=== PATIENT | female | born 1960 | race Caucasian/White ===

== ENCOUNTER 2016-09-09 15:22 | Emergency (ER) | payer MEDICAID, OTHER ==
[~2016-09-09] VITALS: Ht 149.9 cm; Wt 54.0 kg
[~2016-09-09 15:22] MED LIST: HYDR500T13; IBUP800T41; SULFA
[2016-09-09 16:26] VITALS: BP 172/93
== END 2016-09-09 16:35 | disposition home or self-care (01) ==
LOC: ER 15:27
DX: J20.9 Acute bronchitis, unspecified (principal); I10 Essential (primary) hypertension
CPT/HCPCS: 71020

== ENCOUNTER 2017-01-12 15:21 | Emergency (ER) | payer OTHER ==
[~2017-01-12] VITALS: Ht 149.9 cm; Wt 55.8 kg
[2017-01-12 17:48] VITALS: BP 169/103
== END 2017-01-12 19:03 | disposition home or self-care (01) ==
LOC: ER 15:21
DX: J20.9 Acute bronchitis, unspecified (principal); I10 Essential (primary) hypertension; Z90.49 Acquired absence of other specified parts of digestive tract; Z90.710 Acquired absence of both cervix and uterus

== ENCOUNTER 2021-06-23 16:42 | Emergency (ER) | payer OTHER ==
[~2021-06-23] VITALS: Ht 149.9 cm; Wt 52.2 kg
[2021-06-23] MEDS ORDERED: SODIUM CHLORIDE 0.9% 500 ML IV ONE (18:30)
[2021-06-23 20:52] VITALS: BP 154/89
[2021-06-23 20:57] LABS: Basophils # (auto) 0.1 10 ^3/uL (0-0.2); Basophils % (auto) 1.4 % (0.0-2.0); Eosinophils # (auto) 0.1 10 ^3/uL (0-0.8); Eosinophils % (auto) 1.2 % (0.0-7.0); Hematocrit 46.3 % (36.0-46.0); Hemoglobin 15.8 g/dL (12.2-16.2); Lymphocytes # (auto) 2.8 10 ^3/uL (0.4-5.4); Lymphocytes % (auto) 35.6 % (10.0-50.0); Mean Corpuscular Hgb Conc. 34.1 g/dL (32.0-36.0); Mean Corpuscular Volume 81.9 fL (80.0-100.0); Monocytes # (auto) 0.6 10 ^3/uL (0-1.3); Neutrophils # (auto) 4.4 10 ^3/uL (1.6-8.6); Neutrophils % (auto) 54.8 % (37.0-80.0); Nucleated Red Blood Cells % 0.2 %; Red Blood Cells 5.65 10^6/uL (4.0-5.20); White Blood Cell 7.9 10^3/uL (4.4-10.8)
[2021-06-23 21:13] LABS: Albumin 4.1 g/dL (3.4-5.0); BUN/Creatinine Ratio 21.4; Calcium 9.7 mg/dL (8.5-10.1); Potassium 3.9 mmol/L (3.5-5.1)
[2021-06-23 21:16] LABS: Bilirubin, Total 0.5 mg/dL (0.2-1.0); Total Protein 7.9 g/dL (6.4-8.2)
== END 2021-06-23 22:27 | disposition home or self-care (01) ==
LOC: ER 16:42
DX: R42 Dizziness and giddiness (principal); H57.10 Ocular pain, unspecified eye; I10 Essential (primary) hypertension; Z90.710 Acquired absence of both cervix and uterus; Z88.6 Allergy status to analgesic agent
CPT/HCPCS: 36415; 70450; 70480; 80053; 85025; 85652

== ENCOUNTER 2021-11-05 21:24 | Emergency (ER) | payer OTHER ==
[~2021-11-05] VITALS: Ht 149.9 cm; Wt 51.0 kg
[2021-11-05] MEDS ORDERED: LIDOCAINE 5% TOPICAL PATCH TOP ONE (22:15)
[2021-11-05] MEDS ORDERED: ACETAMINOPHEN 325 MG TAB PO ONE (22:15)
[2021-11-06 00:55] VITALS: BP 129/71
== END 2021-11-06 01:00 | disposition home or self-care (01) ==
LOC: ER 21:24
DX: M25.562 Pain in left knee (principal); I10 Essential (primary) hypertension; Z90.49 Acquired absence of other specified parts of digestive tract; Z90.710 Acquired absence of both cervix and uterus; Z90.89 Acquired absence of other organs; Z79.1 Long term (current) use of non-steroidal anti-inflammatories (NSAID); Z79.899 Other long term (current) drug therapy; Z88.8 Allergy status to other drugs, medicaments and biological substances
CPT/HCPCS: 73562

== ENCOUNTER 2022-03-16 15:42 | Emergency (ER) | payer OTHER ==
[~2022-03-16] VITALS: Ht 149.9 cm; Wt 54.0 kg
[2022-03-16 15:42] VITALS: BP 164/88
[2022-03-16] MEDS ORDERED: DEXT1SYP9 PO (19:08)
== END 2022-03-16 20:08 | disposition home or self-care (01) ==
LOC: ER 15:42
DX: R50.9 Fever, unspecified (principal); B34.9 Viral infection, unspecified; I10 Essential (primary) hypertension; Z90.710 Acquired absence of both cervix and uterus; Z20.822 Contact with and (suspected) exposure to COVID-19; Z88.6 Allergy status to analgesic agent
CPT/HCPCS: 36415; 71045; 87426; 87804

== ENCOUNTER 2022-03-24 17:19 | Emergency (ER) | payer OTHER ==
[~2022-03-24] VITALS: Ht 157.5 cm; Wt 52.8 kg
[~2022-03-24 17:19] MED LIST changes: +DEXT1SYP9 PO
[2022-03-24 19:08] LABS: Lymphocytes # (auto) 1.3 10 ^3/uL (0.4-5.4); Mean Corpuscular Hemoglobin 27.1 pg (28.0-32.0); Monocytes # (auto) 0.3 10 ^3/uL (0-1.3)
[2022-03-24 19:10] LABS: Basophils # (auto) 0 10 ^3/uL (0-0.2); Basophils % (auto) 0.7 % (0.0-2.0); Eosinophils # (auto) 0 10 ^3/uL (0-0.8); Eosinophils % (auto) 0.6 % (0.0-7.0); Hematocrit 48.2 % (36.0-46.0); Hemoglobin 16.4 g/dL (12.2-16.2); Lymphocytes % (auto) 20.1 % (10.0-50.0); Mean Corpuscular Hgb Conc. 34.2 g/dL (32.0-36.0); Mean Corpuscular Volume 79.3 fL (80.0-100.0); Monocytes % (auto) 4.1 % (0.0-12.0); Neutrophils # (auto) 4.8 10 ^3/uL (1.6-8.6); Neutrophils % (auto) 74.5 % (37.0-80.0); Nucleated Red Blood Cells % 0.2 %; Red Blood Cells 6.07 10^6/uL (4.0-5.20); Red Cell Distribution Width 13.8 % (11.8-14.3); White Blood Cell 6.4 10^3/uL (4.4-10.8)
[2022-03-24 19:28] LABS: Albumin 4.1 g/dL (3.4-5.0); BUN/Creatinine Ratio 28.8; Calcium 9.2 mg/dL (8.5-10.1); Potassium 3.9 mmol/L (3.5-5.1)
[2022-03-24 19:31] LABS: Bilirubin, Total 0.7 mg/dL (0.2-1.0); Total Protein 7.9 g/dL (6.4-8.2)
[2022-03-24 19:34] LABS: Urine Bacteria FEW /hpf (None Seen); Urine Blood Negative /uL (Negative); Urine Mucus FEW (None Seen); Urine Specific Gravity 1.024 (1.001-1.035); Urine WBC 12 /hpf (0 - 5)
[2022-03-24] MEDS ORDERED: cefTRIAXone SOD 1,000 MG VL IM ONE (22:30)
[2022-03-24] MEDS ORDERED: LACTATED RINGER'S 1,000 ML IV ONE (22:30)
[2022-03-25] MEDS ORDERED: CEPH-322 PO ×2 (00:57)
[2022-03-25 01:20] VITALS: BP 174/77
== END 2022-03-25 05:38 | disposition home or self-care (01) ==
LOC: ER 17:19
DX: M79.7 Fibromyalgia (principal); N39.0 Urinary tract infection, site not specified; E86.0 Dehydration; R42 Dizziness and giddiness; I10 Essential (primary) hypertension; Z90.710 Acquired absence of both cervix and uterus; Z20.822 Contact with and (suspected) exposure to COVID-19
CPT/HCPCS: 36415; 71046; 80053; 81001; 84484; 85025; 87426; 87804; 93005; 96360; 96372; 99285; J0696

== ENCOUNTER 2022-12-21 17:00 | Emergency (ER) | payer OTHER ==
[~2022-12-21] VITALS: Ht 149.9 cm; Wt 52.2 kg
[~2022-12-21 17:00] MED LIST changes: +CEPH250C PO
[2022-12-21 18:26] VITALS: BP 182/99; PULSE 83; RESP 16; TEMP 98.7; O2SAT 98
[2022-12-21] MEDS ORDERED: ERY05OO OP (18:32)
== END 2022-12-21 18:42 | disposition home or self-care (01) ==
LOC: ER 17:00
DX: H00.025 Hordeolum internum left lower eyelid (principal); I10 Essential (primary) hypertension; Z48.00 Encounter for change or removal of nonsurgical wound dressing; Z90.49 Acquired absence of other specified parts of digestive tract; Z90.710 Acquired absence of both cervix and uterus; Z98.890 Other specified postprocedural states; Z88.6 Allergy status to analgesic agent; Z79.1 Long term (current) use of non-steroidal anti-inflammatories (NSAID); Z79.899 Other long term (current) drug therapy

== ENCOUNTER 2024-03-21 19:40 | Inpatient (IN) | payer OTHER ==
[~2024-03-21] VITALS: Ht 149.9 cm; Wt 51.1 kg
[~2024-03-21 19:40] MED LIST changes: +ERY05OO OP
[2024-03-21 21:17] LABS: Chloride 104 mmol/L (98-107); Potassium 3.6 mmol/L (3.5-5.1); Sodium 139 mmol/L (136-145)
[2024-03-21 21:18] LABS: Anion Gap 9 (5-15); Basophils # (auto) 0 10 ^3/uL (0-0.2); Basophils % (auto) 0.7 % (0.0-2.0); Calcium 10.3 mg/dL (8.7-10.4); Carbon Dioxide 26 mmol/L (20-31); Eosinophils # (auto) 0.2 10 ^3/uL (0-0.8); Eosinophils % (auto) 2.8 % (0.0-7.0); Hematocrit 47.5 % (36.0-46.0); Hemoglobin 16.4 g/dL (12.2-16.2); Lymphocytes # (auto) 2.1 10 ^3/uL (0.4-5.4); Lymphocytes % (auto) 29.7 % (10.0-50.0); Mean Corpuscular Hemoglobin 28.1 pg (28.0-32.0); Mean Corpuscular Hgb Conc. 34.5 g/dL (32.0-36.0); Mean Corpuscular Volume 81.6 fL (80.0-100.0); Monocytes # (auto) 0.5 10 ^3/uL (0-1.3); Monocytes % (auto) 6.9 % (0.0-12.0); Neutrophils # (auto) 4.2 10 ^3/uL (1.6-8.6); Neutrophils % (auto) 59.9 % (37.0-80.0); Platelet Count (auto) 299 10^3/uL (140-450); Red Blood Cells 5.82 10^6/uL (4.0-5.20); White Blood Cell 7.1 10^3/uL (4.4-10.8)
[2024-03-21 21:23] LABS: BUN/Creatinine Ratio 17.1 (10.0-20.0); Blood Urea Nitrogen 12 mg/dL (9-23); Glucose 114 mg/dL (74-106)
--- NOTE | 2024-03-21 22:22 | DVH ---
CLINICAL HISTORY: near syncope TECHNIQUE: Helical imaging carried out from skull base to vertex without intravenous contrast. This e xam was performed according to our departmental dose optimization program. Up-to-date CT equipment an d radiation dose reduction techniques are utilized as appropriate. CTDIVol: [CTDIvol] mGy DLP: 788.69 mGy-cm WID: COMPARISON: HEAD WITHOUT CONTRAST on DOS: 06/23/21 FINDINGS: The ventricles and subarachnoid spaces are normal in size and configuration. There is no midline jadiel ft or mass effect. The mosley white matter interfaces are maintained. The basal cisterns are patent. Th ere is no evidence of acute intracranial hemorrhage or extra-axial fluid collection. The mastoid air cells and visualized paranasal sinuses are well-aerated. Partially empty sella. IMPRESSION: No acute intracranial abnormality.
--- NOTE | 2024-03-21 22:23 | DVH ---
EXAM: XY CHEST TWO VIEWS ROUTINE CLINICAL HISTORY: near syncope TECHNIQUE: Frontal and lateral views of the chest WID: COMPARISON: CHEST TWO VIEWS ROUTINE on DOS: 03/24/22, CXR2 on DOS: 03/24/22 FINDINGS: Lines and tubes: None Chest: The heart size and pulmonary vasculature is within normal limits. No pleural effusion, pneumothorax, or consolidation. The osseous structures are grossly intact. Mild multilevel thoracic spondylosis. IMPRESSION: No acute cardiopulmonary abnormality.
--- NOTE | 2024-03-21 23:00 | ED.PDOC ---
History of Present Illness HPI Comments 64F with SLE, Fibromyalgia, and Polycythemia Vera presents with two days of weakness, black stool, and feeling like she is going to pass out. She reports that she had her first blood letting episode for polycythemia vera and since then has felt this way. Chief Complaint: Rectal Pain Time Seen by MD: 19:46 Primary Care Provider: CLIF Reviewed Notes: Nurses Notes Allergies: Coded Allergies: Ibuprofen (Verified Allergy, Unknown, 01/12/17) Morphine (Verified Allergy, Unknown, 05/13/11) Home Meds Active Scripts Erythromycin (Erythromycin) 5 Mg/Gm Oin, 1 MG OP 6XD for 7 Days, #1 OIN 0 Refills Prov:WING CHAVEZ 12/21/22 Cephalexin (KEFLEX CAPSULE) 250 Mg Cp, 250 MG PO TID for 5 Days, #15 CAP Prov:SANTI PEREZ DO 03/25/22 Cephalexin (KEFLEX CAPSULE) 250 Mg Cp, 1 CAP PO QID, #40 CAP Prov:SANTI PEREZ DO 03/25/22 Dextromethorphan-Guaifenesin (Robitussin-Dm) 10 Ml Sr, 10 ML PO Q4HP PRN, #240 SYP Prov:BAILEY BROWN DO 03/16/22 Reported Medications [Sulfa] No Conflict Check 12/31/12 Hydrocodone-Acetaminophen (Acetaminophen/Hydrocodone) 1 Tab Tab 05/13/11 Ibuprofen (Ibu) 800 Mg Tab 05/13/11 Information Source: Patient Mode of Arrival: Ambulatory Past Medical History PAST MEDICAL HISTORY: HTN Surgical History: Appendectomy, , Hysterectomy, Tonsillectomy DIVORCE ATTORNEY History: No Pertinent DIVORCE ATTORNEY History Family History Family History: Reviewed,noncontributory to illness Social History Smoker: Non-Smoker Alcohol: Denies ETOH Use Drugs: Denies Drug Use Lives In: Home Physical Exam General Appearance: No Apparent Distress, Normal HEENT: Normal ENT Inspection, Pharynx Normal, TMs Normal Neck: Full Range of Motion, Non-Tender, Normal, Normal Inspection Respiratory: Chest Non-Tender, Lungs Clear, No Accessory Muscle Use, No Respiratory Distress, Normal Breath Sounds Cardiovascular: No Edema, No JVD, No Murmur, No Gallop, Normal Peripheral Pulses, Regular Rate/Rhythm Breast Exam: Deferred Gastrointestinal: No Organomegaly, Non Tender, No Pulsatile Mass, Normal Bowel Sounds, Soft Genitalia: Deferred Pelvic: Deferred Rectal: Deferred Extremities: No calf tenderness, Normal capillary refill, Normal inspection, Normal range of motion, Non-tender, No pedal edema Musculoskeletal : Apperance: Normal Neurologic: Alert, associate dean of women II-XII nml as Tested, No Motor Deficits, Normal Affect, Normal Mood, No Sensory Deficits Cerebellar Function: NOT DONE Reflexes: NOT DONE Skin: Dry, Normal Color, Warm Lymphatic: No Adenopathy Was a procedure done? Was a procedure done?: No Differential Dx Considerations may include: acs, viral syndrome, electrolyte abnormality, cardiac arrhythmia, rheumatic cause X-Ray, Labs, Meds, VS Vital Signs Date Time Temp Pulse Resp B/P (MAP) Pulse Ox O2 Delivery O2 Flow Rate FiO2 03/21/24 20:27 70 03/21/24 20:19 97.8 96 16 107/78 (88) 96 Lab Test 03/21/24 21:07 03/21/24 20:35 Range/Units Troponin I High Sensitivity < 3 L < 3 L </=34 ng/L White Blood Count 7.1 4.4-10.8 10^3/uL Red Blood Count 5.82 H 4.0-5.20 10^6/uL Hemoglobin 16.4 H 12.2-16.2 g/dL Hematocrit 47.5 H 36.0-46.0 % Mean Corpuscular Volume 81.6 80.0-100.0 fL Mean Corpuscular Hemoglobin 28.1 28.0-32.0 pg Mean Corpuscular Hemoglobin Concent 34.5 32.0-36.0 g/dL Red Cell Distribution Width 14.0 11.8-14.3 % Platelet Count 299 140-450 10^3/uL Mean Platelet Volume 8.2 6.9-10.8 fL Neutrophils (%) (Auto) 59.9 37.0-80.0 % Lymphocytes (%) (Auto) 29.7 10.0-50.0 % Monocytes (%) (Auto) 6.9 0.0-12.0 % Eosinophils (%) (Auto) 2.8 0.0-7.0 % Basophils (%) (Auto) 0.7 0.0-2.0 % Neutrophils # (Auto) 4.2 1.6-8.6 10 ^3/uL Lymphocytes # (Auto) 2.1 0.4-5.4 10 ^3/uL Monocytes # (Auto) 0.5 0-1.3 10 ^3/uL Eosinophils # (Auto) 0.2 0-0.8 10 ^3/uL Basophils # (Auto) 0 0-0.2 10 ^3/uL Nucleated Red Blood Cells 0.0 % Sodium Level 139 136-145 mmol/L Potassium Level 3.6 3.5-5.1 mmol/L Chloride Level 104 98-107 mmol/L Carbon Dioxide Level 26 20-31 mmol/L Anion Gap 9 5-15 Blood Urea Nitrogen 12 9-23 mg/dL Creatinine 0.70 0.550-1.02 mg/dL Glomerular Filtration Rate Calc 95 >90 mL/min BUN/Creatinine Ratio 17.1 10.0-20.0 Serum Glucose 114 H 74-106 mg/dL Calcium Level 10.3 8.7-10.4 mg/dL Time of 1ST Reevaluation: 22:59 Reevaluation 1ST: Unchanged Patient Education/Counseling: Diagnosis, Treatment Family Education/Counseling: No Family Present Departure 1 Departure Time of Disposition: 22:59 (Patient presented with near syncope today and should be admitted. Data: 1. I ordered and reviewed the result of at least 3 labs including a CBC, BMP, and troponin. 2. I independently interpreted the following tests: EKG which shows a normal sinus and a chest x-ray which shows benign chest and a CT head which shows benign brain.Risk:This patient has a high risk of morbidity due to further diagnostic testing or treatment and may suffer from an acute cardiac, neurologic, or infectious disorder. Rationale: Patient should be admitted to the hospital for further management.) Impression: Primary Impression: Near syncope Additional Impressions: Bright red blood per rectum Weakness Disposition: ADMITTED INPATIENT Admit to: Med Surg Condition: Serious Critical Care Note Critical Care Time?: No Stability Stability form required: No Heart Score Heart Score: Heart Score Response (Comments) Value History Slightly Suspicious 0 EKG Repolarization Disturb 1 Age >65 2 Risk Factors 1 or 2 risk factors 1 Troponin Normal limit 0 Total 4 BRITTNEE SANDOVAL MD Mar 21, 2024 23:00
--- NOTE | 2024-03-21 23:25 | DVHHPRES ---
History of Present Illness Resident Creating Document: [facility] RESIDENT History of Present Illness Ms. Vanegas, a 64-year-old female with past medical history significant for hypertension, Multiple previous concussions, SLE, fibromyalgia, anxiety, insomnia, appendicectomy, x2, hysterectomy, tonsillectomy, and recently diagnosed polycythemia vera presents with 2 days of weakness, fresh red blood per rectum, and feeling that she is going to pass out. recently she has been diagnosed with polycythemia vera and further workup is pending at this point, she had her 1st phlebotomy episode with 250 cc of blood. She came with rectal pain, bleeding per rectum for 1 episode, recent constipation and lower abdominal cramps. She denies any fever, chills, nausea, vomiting, previous history like this, any recent medication changes, or recent history of SLE exacerbation. Cardiovascular: HTN, syncope GI: Constipation, Hemorrhoids Heme/Onc: Other Psych: Anxiety Musculoskeletal: Osteoarthritis Rheumatologic: Fibromyalgia Past Surgical History: Appendectomy, , Tonsillectomy Past Surgical History appendicectomy, x2, hysterectomy, tonsillectomy, Family History: Other (Noncontributory) Smoke: No ALCOHOL: none Drugs: None Lives: with Family Domestic Violence: Neg Review of Systems Constitutional: Yes: Weakness, Malaise Eyes: No: Pain, Vision change, Conjunctivae inflammation, Eyelid inflammation, Other, Redness ENT: No: Ear pain, Ear discharge, Nose pain, Nose discharge, Nose congestion, Mouth pain, Mouth swelling, Throat pain, Throat swelling, Other Respiratory: No: Cough, Dry, Shortness of breath, SOB with excertion, Wheezing, Hemoptysis, Pleuritic Pain, Sputum, Wheezing, Other Cardiovascular: No: Chest Pain, Palpitations, Orthopnea, Paroxysmal Noc. Dyspnea, Edema, Lt Headedness, Other Gastrointestinal: Constipation, Hematochezia Genitourinary: No Dysuria, No Frequency, No Incontinence, No Hematuria, No Retention, No Other Musculoskeletal: No: other, neck pain, shoulder pain, arm pain, back pain, hand pain, leg pain, foot pain Skin: No: Rash, Lesions, Jaundice, Bruising, Other Neurological: No: Weakness, Numbness, Incoordination, Change in speech, Confusion, Seizures, Other Allergies: Coded Allergies: Ibuprofen (Verified Allergy, Unknown, 01/12/17) Morphine (Verified Allergy, Unknown, 05/13/11) Medications Current Medications Medications Dose Ordered Sig/Apoorva Route Start Time Stop Time Status Last Admin Dose Admin Nitroglycerin 0.4 mg Q5MINP PRN SL 03/21/24 23:30 UNV Morphine Sulfate 2 mg Q30M PRN IV 03/21/24 23:30 UNV Exam Vital Signs Vital Signs Date Time Temp Pulse Resp B/P (MAP) Pulse Ox O2 Delivery O2 Flow Rate FiO2 03/21/24 20:27 70 03/21/24 20:19 97.8 16 107/78 (88) 96 General Appearance: Alert, Oriented X3, Cooperative, mild distress HEENT: Atraumatic, PERRLA, EOMI, Mucous membr. moist/pink Respiratory: Clear to auscultation, Normal air movement Cardiovascular: Regular rate, Normal S1, Normal S2, No murmurs, Gallops Abdominal: Normal bowel sounds, Soft, No tenderness, No hepatospenomegaly, No masses, Other (Patient was done in the hallway, despite recurrent tries could not find a private area for rectal examination. Deferred as per patient and primary RN.) Extremities: No clubbing, No cyanosis, No edema, Normal pulses, No tenderness/swelling Skin: No rashes, No breakdown, No significant lesion Neuro: Normal gait, Normal speech, Strength at 5/5 X4 ext, Normal tone, Sensation intact, Cranial nerves 3-12 NL, Reflexes 2+ Psych/Mental Status: Mental status NL, Other (Mildly anxious affect) Labs/Xrays Labs Test 03/21/24 21:07 03/21/24 20:35 Range/Units Troponin I High Sensitivity < 3 L </=34 ng/L White Blood Count 7.1 4.4-10.8 10^3/uL Red Blood Count 5.82 H 4.0-5.20 10^6/uL Hemoglobin 16.4 H 12.2-16.2 g/dL Hematocrit 47.5 H 36.0-46.0 % Mean Corpuscular Volume 81.6 80.0-100.0 fL Mean Corpuscular Hemoglobin 28.1 28.0-32.0 pg Mean Corpuscular Hemoglobin Concent 34.5 32.0-36.0 g/dL Red Cell Distribution Width 14.0 11.8-14.3 % Platelet Count 299 140-450 10^3/uL Mean Platelet Volume 8.2 6.9-10.8 fL Neutrophils (%) (Auto) 59.9 37.0-80.0 % Lymphocytes (%) (Auto) 29.7 10.0-50.0 % Monocytes (%) (Auto) 6.9 0.0-12.0 % Eosinophils (%) (Auto) 2.8 0.0-7.0 % Basophils (%) (Auto) 0.7 0.0-2.0 % Neutrophils # (Auto) 4.2 1.6-8.6 10 ^3/uL Lymphocytes # (Auto) 2.1 0.4-5.4 10 ^3/uL Monocytes # (Auto) 0.5 0-1.3 10 ^3/uL Eosinophils # (Auto) 0.2 0-0.8 10 ^3/uL Basophils # (Auto) 0 0-0.2 10 ^3/uL Nucleated Red Blood Cells 0.0 % Sodium Level 139 136-145 mmol/L Potassium Level 3.6 3.5-5.1 mmol/L Chloride Level 104 98-107 mmol/L Carbon Dioxide Level 26 20-31 mmol/L Anion Gap 9 5-15 Blood Urea Nitrogen 12 9-23 mg/dL Creatinine 0.70 0.550-1.02 mg/dL Glomerular Filtration Rate Calc 95 >90 mL/min BUN/Creatinine Ratio 17.1 10.0-20.0 Serum Glucose 114 H 74-106 mg/dL Calcium Level 10.3 8.7-10.4 mg/dL [place] [address] Ph: [phone] DIAGNOSTIC IMAGING Diagnostic Imaging Report : [id number] Signed PATIENT: LISA VANEGAS V ACCT: [id number] UNIT: [id number] : 1960 LOC: ER ROOM / BED: / AGE / SEX: 64 / F ADM STATUS: REG ER SERVICE 10 ORDERING PHYSICIAN: BRITTNEE SANDOVAL MD PROCEDURE(s): CXR2 - CHEST TWO VIEWS ROUTINE REASON: near syncope ORDER NUMBER(s): [id number], ACCESSION NUMBER(s): [id number] EXAM: XY CHEST TWO VIEWS ROUTINE CLINICAL HISTORY: near syncope TECHNIQUE: Frontal and lateral views of the chest WID: COMPARISON: CHEST TWO VIEWS ROUTINE on DOS: 03/24/22, CXR2 on DOS: 03/24/22 FINDINGS: Lines and tubes: None Chest: The heart size and pulmonary vasculature is within normal limits. No pleural effusion, pneumothorax, or consolidation. The osseous structures are grossly intact. Mild multilevel thoracic spondylosis. IMPRESSION: No acute cardiopulmonary abnormality. ATED BY: AMIRA YUN MD DICTATED DATE/TIME: 03/21/242220 SIGNED BY: AMIRA YUN MD SIGNED DATE/TIME: 03/21/242220 CC: [place] [id number] Ph: [phone] DIAGNOSTIC IMAGING Diagnostic Imaging Report : [id number] Signed PATIENT: LISA VANEGAS V ACCT: [id number] UNIT: [id number] : 1960 LOC: ER ROOM / BED: / AGE / SEX: 64 / F ADM STATUS: REG ER SERVICE 10 ORDERING PHYSICIAN: BRITTNEE SANDOVAL MD PROCEDURE(s): HWOCT - HEAD WITHOUT CONTRAST REASON: near syncope ORDER NUMBER(s): [id number], ACCESSION NUMBER(s): [id number] CLINICAL HISTORY: near syncope TECHNIQUE: Helical imaging carried out from skull base to vertex without int ravenous contrast. This exam was performed according to our departmental dose optimization program. Up-to-date CT equipment and radiation dose reduction techniques are utilized as appropriate. CTDIVol: [CTDIvol] mGy DLP: 788.69 mGy-cm WID: COMPARISON: HEAD WITHOUT CONTRAST on DOS: 06/23/21 FINDINGS: The ventricles and subarachnoid spaces are normal in size and configuration. There is no midline shift or mass effect. The mosley white matter interfaces are maintained. The basal cisterns are patent. There is no evidence of acute intracranial hemorrhage or extra-axial fluid collection. The mastoid air cells and visualized paranasal sinuses are well-aerated. Partially empty sella. IMPRESSION: No acute intracranial abnormality. ATED BY: AMIRA YUN MD DICTATED DATE/TIME: 03/21/242219 SIGNED BY: AMIRA YUN MD SIGNED DATE/TIME: 03/21/242219 CC: [address] [id number] Ph: [phone] DIAGNOSTIC IMAGING Diagnostic Imaging Report : [id number] Signed PATIENT: LISA VANEGAS V ACCT: [id number] UNIT: [id number] : 1960 LOC: OVERFLOW ROOM / BED: 1019-ER / A AGE / SEX: 64 / F ADM STATUS: ADM IN SERVICE 4 ORDERING PHYSICIAN: [facility] PROCEDURE(s): ABPL - CT AB PEL WO CON-NO ORAL OR IV REASON: Rectal pain ORDER NUMBER(s): [id number], ACCESSION NUMBER(s): [id number] Exam: CT CT AB PEL WO CON-NO ORAL OR IV History: Rectal pain Comparison Study: None available at time of dictation. Technique: Multidetector spiral CT of the abdomen and pelvis was performed from lung bases to pubic symphysis. Imaging was performed without intravenous contrast. Coronal and sagittal multiplanar reformats were obtained from the axial data set by the technologist. Radiation Dose : 1. Abdomen/Pelvis: CTDIvol 5.07 mGy, DLP 236.67 mGy*cm. Findings: Evaluation of vasculature and solid organs is limited due to lack of intravenous contrast use. Lung Bases: Lung bases are clear. Visualized portions of the heart and pericardium are unremarkable. Liver: The liver is normal in size. No focal lesions. Gallbladder and Biliary Tree: The gallbladder is unremarkable No intrahepatic or extrahepatic biliary ductal dilatation. Spleen: Unremarkable Pancreas: The pancreas is grossly unremarkable. Adrenal Glands: Unremarkable Kidneys: Kidneys are unremarkable without calculi or hydronephrosis. GI tract: Small hiatal hernia. There is wall thickening of the terminal ileum with mild fat stranding. The colon is unremarkable. The appendix is visualized and is normal. Peritoneum/mesentery/retroperitoneum. No evidence of free intraperitoneal air. No ascites. No evidence of suspicious lymphadenopathy. Abdominal Wall: Unremarkable. Vasculature: The visualized abdominal aorta is normal in size and caliber. Evaluation of abdominal and pelvic vessels is limited due to lack of intravenous contrast. Urinary Bladder: Grossly unremarkable for degree of distention. Pelvic Organs: Unremarkable Musculoskeletal: No aggressive focal bony lesions, acute fractures or dislocatio n. IMPRESSION: 1. Evaluation limited without intravenous contrast. 2. Wall thickening and fat stranding of the terminal ileum. Findings could represent terminal ileitis in the appropriate clinical setting. No small bowel obstruction. ATED BY: JOI FRIAS MD DICTATED DATE/TIME: 03/22/24727 SIGNED BY: JOI FRIAS MD SIGNED DATE/TIME: 03/22/24727 CC: Assessment/Plan Assessment/Plan Assessment: A 64-year-old female with a history of hypertension, SLE, fibromyalgia, anxiety, insomnia, and recently diagnosed polycythemia vera presents with 2 days of weakness, fresh rectal bleeding, and near-syncope. She recently had her first phlebotomy (250 cc) and reports rectal pain, one episode of rectal bleeding, constipation, and lower abdominal cramps. She denies fever, chills, nausea, vomiting, similar past episodes, recent medication changes, or recent SLE exacerbation. Further workup for polycythemia vera is pending. Plan: #1 Rectal pain: known history of internal hemorrhoid previously discovered, recent history of constipation. New onset of rectal pain, patient did not have any rectal trauma. But had 1 episode of bright red blood per rectum. FOBT positive, rectal examination pending, deferred due to the lack of privacy in the hallway. GI workup pending, OBGYN consulted as well. Last colonoscopy as per patient almost 7 years back. #2 Essential hypertension: Patient is on lisinopril 20 mg daily. Amlodipine 10 mg daily, target blood pressure 140/90 or below. #3 Polycythemia vera: Newly diagnosed polycythemia vera underlying workup pending follows hemato oncologist Dr. Clifton Coronel. Currently ongoing therapeutic phlebotomy next visit April 12 this month. Hemoglobin around 16, IV fluid to reduce any hyperviscosity syndrome. #4 History of fibromyalgia: Patient has multiple tenderness in multiple visceral points. #5 Intermittent constipation: Patient takes MiraLax as needed. Colace added as needed. #6 Insomnia: Remeron mirtazapine 15 mg at night. Overnight patient had difficulty in sleeping 1 dose of temazepam given pain #7 Osteoarthritis/arthropathy: Patient takes diclofenac Voltaren 1% gel, ibuprofen 800 mg as needed. #8 With glaucoma: Patient takes we will appetite in 0.2% solution both eyes 1 drop daily. #9 Asthma: As needed Ventolin 2 puffs q.4 hours, chest clear, as needed medicati on. Patient breathing in the room air. #10 Recurrent history of head concussion: Previous history of multiple head concussions previous MRI CT scan negative, follows neurologist, has intermittent headache. Bedside neurological examination unremarkable. #11: Presyncope: Likely patient got anxious by looking at per rectal blood, history is inconsistent. CT head negative, continue IV fluid, orthostatic vitals, labs and echo to check. EKG unremarkable. Previous extensive workup unremarkable. Fall precaution. #12: Ilitis/small-bowel inflammation: Noted in CT abdomen. Stool cultures, stool workup, IV ceftriaxone and metronidazole to continue. Patient denies any non your vomiting oral inflammation/infection signs or symptoms. Abdomen soft unremarkable bowel sounds present. #13: Prediabetes: HbA1c of 5.7 weight loss, lifestyle modification. #14: Euthyroid sick syndrome: Elevated TSH of 11, but free T3 and T4 WNL likely due to multiorgan disease PUD prophylaxis: protonix 40mg continue DVT prophylaxis: SCD/brisk movement. Barriers to discharge: Medical diagnosis and managment in progress. Patient lives with self / family. Independent/need supportive device/wheelchair/person support for ADL. PT and SW consult as needed. 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 Case discussed with Dr. Ashley. Code Status: Full Code. Discussion needed total 23 minutes bedside. Plan discussed with: Patient, Other My Orders Orders - [facility] RESIDENT Procedure Category Date Status Time Admit ADMIT 03/21/24 Transmitted 23:21 Nitroglycerin PHA 03/21/24 Logged Sublingual (Ntrostat 23:30 Morphine Sulfate PHA 03/21/24 Logged Injection 23:30 Oxygen By Nasal RT 03/21/24 Transmitted Cannula 23:21 Stat Ekg For Chest OLAMIDE 03/21/24 In Process Pain 23:21 Notify Of Changes OLAMIDE 03/21/24 In Process From Base 23:21 Exchange Clerk For OLAMIDE 03/21/24 In Process 24 Hours 23:21 Emergency Dysrhythmia OLAMIDE 03/21/24 In Process Protocol 23:21 Rhythm Strips Once OLAMIDE 03/21/24 In Process Every Shift 23:21 Date of Service: Mar 21, 2024 Billing Provider: EREN ASHLEY MD Common Visit Codes: 19560-[id number] INP/OBS CARE (HIGH) Secondary Visit Codes: 01174-[id number] CARE PLAN 30 MINUTES [facility] RESIDENT Mar 21, 2024 23:25 EREN ASHLEY MD Mar 22, 2024 21:37
[2024-03-21] MEDS ORDERED: MORPHINE SULFATE INJ 2 MG/ml SYRG IV PRN (23:30)
[2024-03-21] MEDS ORDERED: NITROGLYCERIN 0.4 MG SL TAB SL PRN (23:30)
[2024-03-22] VITALS (7 sets, daily range): BP systolic 124–136; BP diastolic 68–80; PULSE 16–83; RESP 16–18; TEMP 97.8–98.1; O2SAT 97–98
--- NOTE | 2024-03-22 00:37 | ECG ---
[facility] Test Date: 2024-03-21 Test Time: 20:27:18 Pat Name: LISA VANEGAS Department: ER Room: 0271 Gender: F Acid Cleaner: OBED : 1960 Requested By: BRITTNEE SANDOVAL Order Number: [id number] Reading MD: Chad Powers Measurements Intervals Chana Rate: 70 P: 64 WA: 154 QRS: 4 QRSD: 83 T: 14 QT: 394 QTc: 426 Interpretive Statements Sinus rhythm Electronically Signed On 03-23-2024 16:16:34 PST by Chad Powers Please click the below link to view image of tracing.
[2024-03-22 00:44] LABS: Alanine Aminotransferase 19 U/L (7-40); Albumin 4.9 g/dL (3.2-4.8); Alkaline Phosphatase 91 U/L (46-116); Anion Gap 13 (5-15); Aspartate Aminotransferase 20 U/L (13-40); Bilirubin, Total 0.6 mg/dL (0.2-1.0); Blood Urea Nitrogen 12 mg/dL (9-23); Calcium 10.2 mg/dL (8.7-10.4); Carbon Dioxide 21 mmol/L (20-31); Chloride 105 mmol/L (98-107); Glucose 114 mg/dL (74-106); Potassium 3.8 mmol/L (3.5-5.1); Sodium 139 mmol/L (136-145)
[2024-03-22 00:45] LABS: Total Protein 7.6 g/dL (5.7-8.2)
[2024-03-22] MEDS: TEMAZEPAM 15 MG CAP PO ONE (01:37)
[2024-03-22] MEDS ORDERED: DOCUSATE SOD 100 MG CAP PO PRN (06:45)
[2024-03-22 07:21] LABS: Basophils # (auto) 0 10 ^3/uL (0-0.2); Basophils % (auto) 0.8 % (0.0-2.0); Eosinophils # (auto) 0.2 10 ^3/uL (0-0.8); Eosinophils % (auto) 4.2 % (0.0-7.0); Hematocrit 44.3 % (36.0-46.0); Hemoglobin 15.3 g/dL (12.2-16.2); Lymphocytes % (auto) 38.1 % (10.0-50.0); Mean Corpuscular Hemoglobin 28.2 pg (28.0-32.0); Mean Corpuscular Hgb Conc. 34.7 g/dL (32.0-36.0); Mean Corpuscular Volume 81.3 fL (80.0-100.0); Monocytes # (auto) 0.4 10 ^3/uL (0-1.3); Monocytes % (auto) 8.3 % (0.0-12.0); Neutrophils # (auto) 2.5 10 ^3/uL (1.6-8.6); Neutrophils % (auto) 48.6 % (37.0-80.0); Nucleated Red Blood Cells % 0.1 %; Platelet Count (auto) 271 10^3/uL (140-450); Red Blood Cells 5.45 10^6/uL (4.0-5.20); Red Cell Distribution Width 14.1 % (11.8-14.3); White Blood Cell 5.2 10^3/uL (4.4-10.8)
--- NOTE | 2024-03-22 07:31 | DVH ---
Exam: CT CT AB PEL WO CON-NO ORAL OR IV History: Rectal pain Comparison Study: None available at time of dictation. Technique: Multidetector spiral CT of the abdomen and pelvis was performed from lung bases to pubic s ymphysis. Imaging was performed without intravenous contrast. Coronal and sagittal multiplanar refor mats were obtained from the axial data set by the technologist. Radiation Dose : 1. Abdomen/Pelvis: CTDIvol 5.07 mGy, DLP 236.67 mGy*cm. Findings: Evaluation of vasculature and solid organs is limited due to lack of intravenous contrast use. Lung Bases: Lung bases are clear. Visualized portions of the heart and pericardium are unremarkable. Liver: The liver is normal in size. No focal lesions. Gallbladder and Biliary Tree: The gallbladder is unremarkable No intrahepatic or extrahepatic bilia ry ductal dilatation. Spleen: Unremarkable Pancreas: The pancreas is grossly unremarkable. Adrenal Glands: Unremarkable Kidneys: Kidneys are unremarkable without calculi or hydronephrosis. GI tract: Small hiatal hernia. There is wall thickening of the terminal ileum with mild fat strandin g. The colon is unremarkable. The appendix is visualized and is normal. Peritoneum/mesentery/retroperitoneum. No evidence of free intraperitoneal air. No ascites. No evidenc e of suspicious lymphadenopathy. Abdominal Wall: Unremarkable. Vasculature: The visualized abdominal aorta is normal in size and caliber. Evaluation of abdominal a nd pelvic vessels is limited due to lack of intravenous contrast. Urinary Bladder: Grossly unremarkable for degree of distention. Pelvic Organs: Unremarkable Musculoskeletal: No aggressive focal bony lesions, acute fractures or dislocation. IMPRESSION: 1. Evaluation limited without intravenous contrast. 2. Wall thickening and fat stranding of the terminal ileum. Findings could represent terminal ileiti s in the appropriate clinical setting. No small bowel obstruction.
[2024-03-22 07:36] LABS: Chloride 106 mmol/L (98-107); Potassium 3.5 mmol/L (3.5-5.1); Sodium 139 mmol/L (136-145)
[2024-03-22 07:37] LABS: Anion Gap 9 (5-15); Calcium 9.8 mg/dL (8.7-10.4); Carbon Dioxide 24 mmol/L (20-31)
[2024-03-22 07:39] LABS: Free T3 3.61 pg/mL (2.3-4.2); Free T4 (Free Thyroxine) 1.18 ng/dL (0.89-1.76)
[2024-03-22 07:42] LABS: BUN/Creatinine Ratio 19.4 (10.0-20.0); Blood Urea Nitrogen 12 mg/dL (9-23); Glucose 134 mg/dL (74-106)
[2024-03-22 09:03] LABS: Magnesium 2.2 mg/dL (1.6-2.6)
[2024-03-22 09:04] LABS: CRP High Sensitivity 0.17 mg/dL (<1.0)
[2024-03-22 09:05] LABS: Phosphorus 3.6 mg/dL (2.4-5.1)
[2024-03-22 09:45] LABS: INR 0.97 (0.9-1.15); Partial Thromboplastin Time 21.5 SEC (24.5-34.5); Prothrombin Time 10.3 sec (9.3-11.8)
[2024-03-22] MEDS ORDERED: ALBUTEROL SULF 2.5 MG/0.5ML(0.5%) NEB SOLN NEB PRN (10:00)
[2024-03-22 10:04] LABS: Erythrocyte Sedimentation Rate 4 mm/hr (0-20)
[2024-03-22] MEDS: cefTRIAXone 1GM/50ML D5W 50 ML IV SCH (10:32)
[2024-03-22] MEDS: SODIUM CHLORIDE 0.9% 1,000 ML IV SCH (10:33)
[2024-03-22] MEDS: PANTOPRAZOLE 40 MG/10 ML VIAL INJ IV SCH (10:33)
[2024-03-22] MEDS: metroNIDAZOLE 500 MG TAB PO SCH (14:00)
--- NOTE | 2024-03-22 14:33 | DVHPNRES ---
Progress Note Date Seen: Mar 22, 2024 Resident Creating Document: AUBREY KUMARI RESIDENT Medical Necessity Reason Pt with a Central, PICC or Fol: No Subjective Review of Systems LISA VANEGAS V is a 64-year-old female with a PMH of HTN, SLE, fibromyalgia, anxiety, insomnia, polycythemia presented to the ED with the chief complaints of weakness, fresh red blood per rectum, and feeling that she is going to pass out for past 2 days. Patient reported abdominal pain is 8/10 which is crampy, generalized associated with the nausea and vomiting. Patient does reported having 2-3 episodes of painless rectal bleeding Without change in stool consistency. Patient thought it might be SLE exacerbation which brought her to visit ED. on my assessment patient denies fever, chills, headache, diarrhea, chest pain, difficulty breathing, and other acute associated times PMH: HTN, SLE, fibromyalgia, anxiety, insomnia, polycythemia PSH: Appendectomy, , Tonsillectomy Family history reviewed, noncontributory Social history: patient lives with the family. Denies smoking, alcohol and other drug abuse Allergies: Ibuprofen and morphine Patient seen and examined at the bedside. Patient reported improvement in her symptoms since admission, no new complaints. CT abdominal pelvis showed wall thickening and fat stranding of the terminal ileum, likely terminal ileitis. Head CT showed no acute abnormalities . Currently on Rocephin and Flagyl along with IVF. Currently on clear liquid diet. Consulted GI for further evaluation. Patient reports: No new complaints Objective vital signs Vital Sign Date Time Temp Pulse Resp B/P (MAP) Pulse Ox O2 Delivery O2 Flow Rate FiO2 03/22/24 12:00 98.8 71 20 106/62 (77) 96 98.8 03/22/24 07:40 Room Air* 0 21 medications Current Medications Medications Dose Ordered Sig/Apoorva Route Start Time Stop Time Status Last Admin Dose Admin Nitroglycerin 0.4 mg Q5MINP PRN SL 03/21/24 23:30 Morphine Sulfate 2 mg Q30M PRN IV 03/21/24 23:30 Pantoprazole Sodium 40 mg DAILY IV 03/22/24 10:00 03/22/24 10:33 40 MG Docusate Sodium 100 mg BIDPRN PRN PO 03/22/24 06:45 Ceftriaxone Sodium 50 ml @ 100 mls/hr DAILY@09 IV 03/22/24 09:00 03/22/24 10:32 100 MLS/HR Metronidazole 500 mg Q8HR PO 03/22/24 14:00 Sodium Chloride 1,000 ml @ 75 mls/hr [id number] IV 03/22/24 08:30 03/22/24 10:33 75 MLS/HR Mirtazapine 15 mg HS PO 03/22/24 22:00 Albuterol 1.25 mg Q4HPRN PRN NEB 03/22/24 10:00 Examination Pt is lying on bed General Appearance: Alert, Oriented X3, Cooperative, Not in acute distress HEENT: Atraumatic, Mucous membranes moist/pink Respiratory: Clear to auscultation, Normal air movement, No added sounds Cardiovascular: Regular rate, Normal S1, Normal S2, No murmurs Abdominal: Generalized abdominal tenderness. Active bowel sounds, soft, no hepatosplenomegaly Extremities: No edema, Normal pulses, No tenderness/swelling Skin: No Significant rash, except past surgical scars Neuro: Normal speech, sensorimotor deficits none Psych/Mental Status: Mental status NL, Mood NL Nurse was there as sharperone during examination laboratory and microbiology Laboratory Tests 03/22/24 06:47 Test 03/22/24 06:47 Range/Units Serum Glucose 134 H 74-106 mg/dL Labs and/or images reviewed: Labs reviewed by me, Image(s) reviewed by me Problem List/Assessment/Plan Problem List/Assessment/Plan # Presyncope - head CT negative - continue IVF - ordered orthostatic vitals - pending echocardiogram # acute enteritis( terminal ileitis) # lower GI bleed - stool occult blood positive - consulted GI for further evaluation - CT abdominal pelvis showed ileitis - Currently on Rocephin and Flagyl along with IVF - Currently on clear liquid diet # constipation - currently on MiraLax # Essential hypertension - Patient is on lisinopril 20 mg daily. Amlodipine 10 mg daily, - target blood pressure 140/90 or below. # Polycythemia vera - Newly diagnosed polycythemia vera underlying workup pending follows hemato oncologist Dr. Clifton Coronel. - Currently ongoing therapeutic phlebotomy next visit April 12 this month. - Hemoglobin around 16, IV fluid to reduce any hyperviscosity syndrome. # History of fibromyalgia - Patient has multiple tenderness in multiple visceral points. # Prediabetes - HbA1c of 5.7 weight loss, lifestyle modification. # Euthyroid sick syndrome - Elevated TSH of 11, but free T3 and T4 WNL likely due to multiorgan disease SCDs for now Protonix Regular diet Reconcile home meds Goals of care discussed with the patient for more than 27 minutes: Full code status Case management discussed with Dr. Ernandez, patient and nurse Plan discussed with: Patient My Orders My Orders Orders - AUBREY KUMARI Procedure Category Date Status Time Ceftriaxone 1gm/50ml PHA 03/22/24 In Process D5w (Rocephin) 09:00 Metronidazole Tablet PHA 03/22/24 In Process (Flagyl Tablet) 14:00 Clear Liq Diet DIET 03/22/24 Transmitted Lunch Date of Service: Mar 22, 2024 Billing Provider: DAVID ERNANDEZ MD Common Visit Codes: 06673-[id number] INP/OBS CARE(HIGH) Secondary Visit Codes: 07546-[id number] CARE PLAN 30 MINUTES AUBREY KUMARI Mar 22, 2024 14:33 DAVID ERNANDEZ MD Mar 26, 2024 19:41
[2024-03-22] MEDS: MIRTAZAPINE 30 MG TAB PO SCH (21:41)
[2024-03-23] VITALS (7 sets, daily range): BP systolic 118–137; BP diastolic 55–76; PULSE 65–71; RESP 17–20; TEMP 97.6–98.1; O2SAT 96–98
[2024-03-23 06:51] LABS: Basophils # (auto) 0 10 ^3/uL (0-0.2); Eosinophils # (auto) 0.3 10 ^3/uL (0-0.8); Eosinophils % (auto) 6.4 % (0.0-7.0); Hematocrit 43.9 % (36.0-46.0); Hemoglobin 14.9 g/dL (12.2-16.2); Lymphocytes % (auto) 47.1 % (10.0-50.0); Mean Corpuscular Volume 82.4 fL (80.0-100.0); Monocytes # (auto) 0.5 10 ^3/uL (0-1.3); Neutrophils # (auto) 1.5 10 ^3/uL (1.6-8.6); Neutrophils % (auto) 34.5 % (37.0-80.0); Nucleated Red Blood Cells % 0.3 %; Platelet Count (auto) 254 10^3/uL (140-450); Red Blood Cells 5.32 10^6/uL (4.0-5.20); White Blood Cell 4.2 10^3/uL (4.4-10.8)
[2024-03-23 06:59] LABS: Anion Gap 8 (5-15); Carbon Dioxide 24 mmol/L (20-31); Potassium 3.9 mmol/L (3.5-5.1); Sodium 143 mmol/L (136-145)
[2024-03-23 07:00] LABS: Calcium 9.5 mg/dL (8.7-10.4)
[2024-03-23 07:05] LABS: BUN/Creatinine Ratio 10.9 (10.0-20.0); Glucose 84 mg/dL (74-106)
[2024-03-23 07:08] LABS: Blood Urea Nitrogen 6 mg/dL (9-23); Chloride 111 mmol/L (98-107)
--- NOTE | 2024-03-23 08:33 | DVHINCON2 ---
DATE OF CONSULTATION: 03/23/2024 REASON FOR CONSULTATION: Rule out vaginal bleeding. HISTORY OF PRESENT ILLNESS: The patient is a 64-year-old 2, para 2, hysterectomized, admitted for dizziness and rectal bleeding along with abdominal pain. The patient reports having had a hysterectomy years ago for fibroid uterus. Her last Pap was 5 years ago. She denies having any vaginal bleeding. PAST MEDICAL HISTORY: SLE, fibromyalgia, anxiety, insomnia, and Polycythemia vera. PAST SURGICAL HISTORY: Hysterectomy, tonsillectomy, and appendectomy. SOCIAL HISTORY: None. FAMILY HISTORY: None. OBSTETRIC AND GYNECOLOGIC HISTORY: two section. REVIEW OF SYSTEMS: CONSTITUTIONAL: Positive for weakness and malaise. RESPIRATORY: No cough or shortness of breath. CARDIOVASCULAR: No chest pain, palpitation. GASTROINTESTINAL: Positive for constipation and rectal bleeding. GENITOURINARY: No dysuria, no frequency. No vaginal bleeding. MUSCULOSKELETAL: No neck pain, shoulder pain. NEUROLOGICAL: No weakness, numbness. PHYSICAL EXAMINATION: VITAL SIGNS: Stable, afebrile. HEENT: Within normal limits CARDIOVASCULAR: Regular rate and rhythm. LUNGS: Clear to auscultation. BREASTS: Symmetrical. No masses. ABDOMEN: Soft, nontender. PELVIC: External genitalia within normal limits. Vagina atrophic. Cervix, uterus absent. No bleeding noted. Adnexa nonpalpable, absent. EXTREMITIES: No clubbing, cyanosis or edema. IMPRESSION: * No evidence of vaginal bleeding or postmenopausal bleeding. The patient has normal gynecologic finding. * Atrophic vaginitis. RECOMMENDATION: Follow up outpatient for Pap. We will sign off. Thank you very much for this consultation. DO ABBY Win TID: [id number] RECEIPT: [id number]
[2024-03-23] MEDS ORDERED: CIPR500T4 PO (10:56)
[2024-03-23] MEDS ORDERED: MET500T PO (10:56)
[2024-03-23] MEDS ORDERED: MIR30T PO (10:56)
[2024-03-23] MEDS ORDERED: PANT40T PO (10:56)
[2024-03-23] MEDS: LACTULOSE 20Gm/30ML SOLN PO ONE (11:48)
--- NOTE | 2024-03-23 12:33 | DVHINCON2 ---
Date of service: Mar 23, [address] Ernandez Reason for Consultation Rectal bleeding History of Present Illness This 64-year-old female presented to the emergency room with complaints of rectal bleeding apparently she had some bright red bleeding for about two days hence of weakness Patient has history of recently diagnosed polycythemia vera SLE fibromyalgia anxiety hypertension She is being followed by mammography technologist for with phlebotomy for polycythemia Evident no evidence of any malignancy Past Medical History Hypertension osteoarthritis fibromyalgia Past Surgical History I appendectomy tonsillectomy hysterectomy Family History: Arthritis G8 MOTHER Autoimmune disorder G8 MOTHER Hypertension G8 FATHER Osteoporosis G8 MOTHER Family History Unremarkable Social History Denies smoking or drinking Allergies: Coded Allergies: Ibuprofen (Verified Allergy, Unknown, 01/12/17) Morphine (Verified Allergy, Unknown, 05/13/11) Home Meds Active Scripts Pantoprazole Sodium Sesquihydr (Pantoprazole Sodium) 40 Mg Tab, 40 MG PO DAILY for 30 Days, #30 TAB Prov:[facility] 03/23/24 Metronidazole (Metronidazole) 500 Mg Tab, 500 MG PO TID for 7 Days, #21 TAB [facility] 03/23/24 Ciprofloxacin Hcl (Ciprofloxacin Hcl) 500 Mg Tab, 1 TAB PO BID for 7 Days, #14 TAB [facility] 03/23/24 Mirtazapine (Remeron) 30 Mg Tb, 15 MG PO HS for 30 Days, #15 TAB [facility] 03/23/24 Erythromycin (Erythromycin) 5 Mg/Gm Oin, 1 MG OP 6XD for 7 Days, #1 OIN 0 Refills Prov:WING CHAVEZ 12/21/22 Cephalexin (KEFLEX CAPSULE) 250 Mg Cp, 250 MG PO TID for 5 Days, #15 CAP Prov:SANTI PEREZ DO 03/25/22 Cephalexin (KEFLEX CAPSULE) 250 Mg Cp, 1 CAP PO QID, #40 CAP Prov:SANTI PEREZ DO 03/25/22 Dextromethorphan-Guaifenesin (Robitussin-Dm) 10 Ml Sr, 10 ML PO Q4HP PRN, #240 SYP Prov:BAILEY BROWN DO 03/16/22 Reported Medications [Sulfa] No Conflict Check 12/31/12 Hydrocodone-Acetaminophen (Acetaminophen/Hydrocodone) 1 Tab Tab 05/13/11 Ibuprofen (Ibu) 800 Mg Tab 05/13/11 Current Medications Current Medications Medications (Trade) Dose Ordered Sig/Apoorva Route PRN Reason Start Time Stop Time Status Last Admin Metronidazole (Flagyl Tablet) 500 mg Q8HR PO 03/22/24 14:00 03/23/24 05:27 Mirtazapine (Remeron Tablet) 15 mg HS PO 03/22/24 22:00 03/22/24 21:41 Review of Systems Noncontributory Vital Signs Vital Signs Date Time Temp Pulse Resp B/P (MAP) Pulse Ox O2 Delivery O2 Flow Rate FiO2 03/23/24 10:00 96 Room Air 0.0 03/23/24 10:00 21 03/23/24 08:42 98.1 71 20 129/64 (85) 98.1 Physical Exam Originally built and nourished slightly on the obese side female in no acute distress Vitals stable HEENT examination no pallor no icterus Neck is supple no lymphnodes Lungs clear Cardiovascular unremarkable Abdomen soft no tenderness no rigidity no guarding Bowel sounds normal Extremities unremarkable CT scan showed mild thickening of the terminal ileum otherwise unremarkable was done without contrast and small hiatal hernia Labs/Diagnostic Data Labs Test 03/23/24 05:20 03/22/24 09:00 03/22/24 06:47 03/22/24 04:40 Range/Units White Blood Count 4.2 L 4.4-10.8 10^3/uL Red Blood Count 5.32 H 4.0-5.20 10^6/uL Hemoglobin 14.9 12.2-16.2 g/dL Hematocrit 43.9 36.0-46.0 % Mean Corpuscular Volume 82.4 80.0-100.0 fL Mean Corpuscular Hemoglobin 28.0 28.0-32.0 pg Mean Corpuscular Hemoglobin Concent 34.0 32.0-36.0 g/dL Red Cell Distribution Width 14.0 11.8-14.3 % Platelet Count 254 140-450 10^3/uL Mean Platelet Volume 8.7 6.9-10.8 fL Neutrophils (%) (Auto) 34.5 L 37.0-80.0 % Lymphocytes (%) (Auto) 47.1 10.0-50.0 % Monocytes (%) (Auto) 11.0 0.0-12.0 % Eosinophils (%) (Auto) 6.4 0.0-7.0 % Basophils (%) (Auto) 1.0 0.0-2.0 % Neutrophils # (Auto) 1.5 L 1.6-8.6 10 ^3/uL Lymphocytes # (Auto) 2.0 0.4-5.4 10 ^3/uL Monocytes # (Auto) 0.5 0-1.3 10 ^3/uL Eosinophils # (Auto) 0.3 0-0.8 10 ^3/uL Basophils # (Auto) 0 0-0.2 10 ^3/uL Nucleated Red Blood Cells 0.3 % Sodium Level 143 136-145 mmol/L Potassium Level 3.9 3.5-5.1 mmol/L Chloride Level 111 H 98-107 mmol/L Carbon Dioxide Level 24 20-31 mmol/L Anion Gap 8 5-15 Blood Urea Nitrogen 6 L 9-23 mg/dL Creatinine 0.55 0.550-1.02 mg/dL Glomerular Filtration Rate Calc 101 >90 mL/min BUN/Creatinine Ratio 10.9 10.0-20.0 Serum Glucose 84 74-106 mg/dL Calcium Level 9.5 8.7-10.4 mg/dL Prothrombin Time 10.3 9.3-11.8 sec Prothrombin Time INR 0.97 0.9-1.15 Activated Partial Thromboplast Time 21.5 L 24.5-34.5 SEC Lactic Acid Level 0.7 0.4-2.0 mmol/L Erythrocyte Sedimentation Rate 4 0-20 mm/hr Hemoglobin A1c 5.8 H <5.7 % A1C Phosphorus Level 3.6 2.4-5.1 mg/dL Magnesium Level 2.2 1.6-2.6 mg/dL C-Reactive Protein High Sensitivity 0.17 <1.0 mg/dL Triglycerides Level 111 < 150 mg/dL Cholesterol Level 194 < 200 mg/dL LDL Cholesterol 110 H < 100 mg/dL HDL Cholesterol 71 H 40-59 mg/dL Vitamin B12 Level 466 211-911 pg/mL Vitamin D 25-Hydroxy 67.9 30.0-100 ng/mL Thyroid Stimulating Hormone (TSH) 11.15 H 0.55-4.78 uIU/mL Free Thyroxine (T4) Calculated 1.18 0.89-1.76 ng/dL Free Triiodothyronine (T3) pg/mL 3.61 2.3-4.2 pg/mL Stool Occult Blood Positive Negative Stool Occult Blood Sample #3 Negative Test 03/21/24 21:07 Range/Units Total Bilirubin 0.6 0.2-1.0 mg/dL Aspartate Amino Transferase (AST) 20 13-40 U/L Alanine Aminotransferase (ALT) 19 7-40 U/L Alkaline Phosphatase 91 46-116 U/L Troponin I High Sensitivity < 3 L </=34 ng/L Total Protein 7.6 5.7-8.2 g/dL Albumin 4.9 H 3.2-4.8 g/dL Assessment This 64-year-old with history of hypertension SLE fibromyalgia polycythemia vera presented with complaints of rectal bleeding. Mild nonspecific abdominal cramps No history of any diverticulosis or diverticulitis in the history of any colon problems colitis Bleeding has stopped and no abdominal Physical examination abdomen is soft nontender no mass Labs are unremarkable and hemoglobin is stable Impression rectal bleeding of undetermined etiology possible mild diverticular bleeding nonspecific proctitis sigmoiditis or hemorrhoids also possiblity Plan/Recommendation Plans increase the diet now since patient is stable now no further bleeding May need an elective endoscopy colonoscopy as an outpatient after symptoms are better as an outpatient electively Thank you Dr. Doss Plan discussed with: Patient KAROL DOSS MD Mar 23, 2024 12:33
--- NOTE | 2024-03-23 13:17 | DVHSR ---
APPROVED REPORT EXAM: Two-dimensional and M-mode echocardiogram with Doppler and color Doppler. Blood Pressure: 118/66 mmHg INDICATION Syncope RISK FACTORS Height: 4'11", Weight: 112 DIMENSIONS LVDd3.8 (3.8-5.7cm)LA (2D)3.4 (1.9-4.0cm)Aortic Root (2.0-3.7cm) LVDs2.4 (2.5-4.0cm)LA (MM) (1.9-4.0cm)Aortic Cusp Exc (1.5-2.0cm) EF (%) 66.0 (55-70%)Rt. Atrium (1.9-4.0cm)Asc. Aorta cm IVSd0.8 (0.7-1.1cm)RV (D) (1.8-2.4cm) Mitral Valve MitralMitral Stenosis E wave0.85m/sMV Mean GR.mmHg A wave0.83m/sMV Peak GR.mmHg E/A ratio1.02D MVAcm2 DECEL [id number] 1/2 [place] Aortic Valve Aortic ValveAortic Stenosis V10.85m/Abby Mean GR.3mmHg V21.12m/Abby Peak GR.5mmHg LVOT Diameter2.0 (1.8-2.4cm)Doppler AVA2.38cm2 Pulmonic Valve V20.95m/s Tricuspid Valve TR Velocity1.94m/s [id number] Other Information Quality : Technically LimitedRhythm : Technically limited study due to body habitus. Conclusion Normal left ventricular size and dimension. Normal left ventricular systolic function estimated ejec tion fraction 55%. There is a grade 1 diastolic dysfunction. Normal right ventricular size and dimension. Normal right ventricular systolic function. Normal biatrial size and dimension. Normal aortic valve structure and function. Normal mitral valve structure and function. Normal tricuspid valve structure and function. The pulmonary valve is grossly normal. No pericardial effusion.
--- NOTE | 2024-03-23 14:27 | DVHDSRES ---
Discharge Summary Date of Admission Resident Creating Document: AUBREY KUMARI RESIDENT Mar 21, 2024 at 23:23 Date of Discharge: Mar 23, 2024 Admitting Diagnosis Rectal bleed Labs/Diagnostic Data: Laboratory Results Test 03/23/24 05:20 03/22/24 09:00 03/22/24 06:47 03/22/24 04:40 White Blood Count 4.2 10^3/uL (4.4-10.8) Red Blood Count 5.32 10^6/uL (4.0-5.20) Hemoglobin 14.9 g/dL (12.2-16.2) Hematocrit 43.9 % (36.0-46.0) Mean Corpuscular Volume 82.4 fL (80.0-100.0) Mean Corpuscular Hemoglobin 28.0 pg (28.0-32.0) Mean Corpuscular Hemoglobin Concent 34.0 g/dL (32.0-36.0) Red Cell Distribution Width 14.0 % (11.8-14.3) Platelet Count 254 10^3/uL (140-450) Mean Platelet Volume 8.7 fL (6.9-10.8) Neutrophils (%) (Auto) 34.5 % (37.0-80.0) Lymphocytes (%) (Auto) 47.1 % (10.0-50.0) Monocytes (%) (Auto) 11.0 % (0.0-12.0) Eosinophils (%) (Auto) 6.4 % (0.0-7.0) Basophils (%) (Auto) 1.0 % (0.0-2.0) Neutrophils # (Auto) 1.5 10 ^3/uL (1.6-8.6) Lymphocytes # (Auto) 2.0 10 ^3/uL (0.4-5.4) Monocytes # (Auto) 0.5 10 ^3/uL (0-1.3) Eosinophils # (Auto) 0.3 10 ^3/uL (0-0.8) Basophils # (Auto) 0 10 ^3/uL (0-0.2) Nucleated Red Blood Cells 0.3 % Sodium Level 143 mmol/L (136-145) Potassium Level 3.9 mmol/L (3.5-5.1) Chloride Level 111 mmol/L (98-107) Carbon Dioxide Level 24 mmol/L (20-31) Anion Gap 8 (5-15) Blood Urea Nitrogen 6 mg/dL (9-23) Creatinine 0.55 mg/dL (0.550-1.02) Glomerular Filtration Rate Calc 101 mL/min (>90) BUN/Creatinine Ratio 10.9 (10.0-20.0) Serum Glucose 84 mg/dL (74-106) Calcium Level 9.5 mg/dL (8.7-10.4) Prothrombin Time 10.3 sec (9.3-11.8) Prothrombin Time INR 0.97 (0.9-1.15) Activated Partial Thromboplast Time 21.5 SEC (24.5-34.5) Lactic Acid Level 0.7 mmol/L (0.4-2.0) Erythrocyte Sedimentation Rate 4 mm/hr (0-20) Hemoglobin A1c 5.8 % A1C (<5.7) Phosphorus Level 3.6 mg/dL (2.4-5.1) Magnesium Level 2.2 mg/dL (1.6-2.6) C-Reactive Protein High Sensitivity 0.17 mg/dL (<1.0) Triglycerides Level 111 mg/dL (< 150) Cholesterol Level 194 mg/dL (< 200) LDL Cholesterol 110 mg/dL (< 100) HDL Cholesterol 71 mg/dL (40-59) Vitamin B12 Level 466 pg/mL (211-911) Vitamin D 25-Hydroxy 67.9 ng/mL (30.0-100) Thyroid Stimulating Hormone (TSH) 11.15 uIU/mL (0.55-4.78) Free Thyroxine (T4) Calculated 1.18 ng/dL (0.89-1.76) Free Triiodothyronine (T3) pg/mL 3.61 pg/mL (2.3-4.2) Stool Occult Blood Positive (Negative) Stool Occult Blood Sample #3 (Negative) Test 03/21/24 21:07 Total Bilirubin 0.6 mg/dL (0.2-1.0) Aspartate Amino Transferase (AST) 20 U/L (13-40) Alanine Aminotransferase (ALT) 19 U/L (7-40) Alkaline Phosphatase 91 U/L (46-116) Troponin I High Sensitivity < 3 ng/L (</=34) Total Protein 7.6 g/dL (5.7-8.2) Albumin 4.9 g/dL (3.2-4.8) Other Laboratory Tests 03/23/24 05:20 Brief Hx & Hospital Course: LISA VANEGAS V is a 64-year-old female with a PMH of HTN, SLE, fibromyalgia, anxiety, insomnia, polycythemia presented to the ED with the chief complaints of weakness, fresh red blood per rectum, and feeling that she is going to pass out for past 2 days. Patient reported abdominal pain is 8/10 which is crampy, generalized associated with the nausea and vomiting. Patient does reported having 2-3 episodes of painless rectal bleeding Without change in stool consistency. Patient thought it might be SLE exacerbation which brought her to visit ED. on my assessment patient denies fever, chills, headache, diarrhea, chest pain, difficulty breathing, and other acute associated symptoms. Patient required hospital admission for further evaluation and management of rectal bleeding. CT abdominal pelvis showed wall thickening and fat stranding of the terminal ileum, likely terminal ileitis. Head CT showed no acute abnormalities . Given Rocephin and Flagyl along with IVF. Progressively advanced diet as patient tolerated. Stool occult blood was positive so, consulted GI for further evaluation. echocardiogram showed normal LVEF 55% with grade 1 diastolic dysfunction. GI recruitment consultant evaluated the patient, advised outpatient elective endoscopy and colonoscopy after the discharge. Patient condition was improved, hemodynamically stable and in condition to be discharged home with optimal medical treatment. Patient was advised about healthy lifestyle habits including diet and exercise and to follow up with PCP. Pt is lying on bed General Appearance: Alert, Oriented X3, Cooperative, Not in acute distress HEENT: Atraumatic, Mucous membranes moist/pink Respiratory: Clear to auscultation, Normal air movement, No added sounds Cardiovascular: Regular rate, Normal S1, Normal S2, No murmurs Abdominal: Generalized abdominal tenderness. Active bowel sounds, soft, no hepatosplenomegaly Extremities: No edema, Normal pulses, No tenderness/swelling Skin: No Significant rash, except past surgical scars Neuro: Normal speech, sensorimotor deficits none Psych/Mental Status: Mental status NL, Mood NL Nurse was there as sharperone during examination Operations or Procedures ECHO Conclusion Normal left ventricular size and dimension. Normal left ventricular systolic function estimated ejection fraction 55%. There is a grade 1 diastolic dysfunction. Normal right ventricular size and dimension. Normal right ventricular systolic function. CT abdominal pelvis showed wall thickening and fat stranding of the terminal ileum, likely terminal ileitis. Head CT showed no acute abnormalities . Condition at Discharge: Stable Final Diagnosis/Problems List # Presyncope # acute enteritis( terminal ileitis) # lower GI/rectal bleed likely seconday to internal hemorrhoids # constipation # Essential hypertension # Polycythemia vera # History of fibromyalgia # Prediabetes HbA1c of 5.7 # Euthyroid sick syndrome # Recurrent history of head concussion # Chronic Asthma # [place] Discharge Disposition: Home Discharge Instruct/Medications Diet: Regular Activity: No Restrictions, As Tolerated Follow Up/Referral: PCP GI specialist Heme/Onc ([facility]) Medications: Per EMR Discharge Statement: "Patient was advised to return to the ER or call 911 if any headaches, dizziness, shortness of breath, chest pain, abdominal pain, bleeding, fevers, or worsening of medical condition. Patient was counseled about treatment plan, medications, possible side effects, patientverbalized understanding. All questions were answered to the best of my ability. This discharge took greater then 30 minutes in planning, reviewing documentation, counseling the patient, and discussing with other team members." ASSESSMENT ASSESSMENT Assessment Rectal bleed, probable secondary to internal hemrrhoids Date of Service: Mar 23, 2024 Billing Provider: DAVID AMAYA MD Common Visit Codes: 23656-WEN/OBS DISCH DAY >30min AUBREY KUMARI RESIDENT Mar 23, 2024 14:27 DVAID AMAYA MD Mar 26, 2024 19:42
== END 2024-03-23 15:35 | disposition home or self-care (01) | DRG 394 ==
LOC: ER 19:40 → OVERFLOW 23:23 → WEST WING 03-22 14:12
PROVIDERS: ADMIT Internal Medicine Geriatric Medicine; ATTEND Internal Medicine Geriatric Medicine
DX: K64.8 Other hemorrhoids (principal); K50.00 Crohn's disease of small intestine without complications; K52.9 Noninfective gastroenteritis and colitis, unspecified; I10 Essential (primary) hypertension; E07.81 Sick-euthyroid syndrome; M79.7 Fibromyalgia; D45 Polycythemia vera; G47.00 Insomnia, unspecified; M19.09 Primary osteoarthritis, other specified site; H40.89 Other specified glaucoma; K59.00 Constipation, unspecified; J45.909 Unspecified asthma, uncomplicated; Z90.710 Acquired absence of both cervix and uterus; Z82.62 Family history of osteoporosis; Z82.49 Family history of ischemic heart disease and other diseases of the circulatory system; Z79.899 Other long term (current) drug therapy
CPT/HCPCS: 36415; 70450; 71046; 74176; 80048; 80053; 80061; 82270; 82306; 82607; 83036; 83605; 83735; 84100; 84439; 84443; 84481; 84484; 85025; 85610; 85652; 85730; 86141; 93005; 93306; G0378; J2470